=== PATIENT | female | born 1995 | race Caucasian/White ===

== ENCOUNTER → 2024-08-21 10:11 | Outpatient (REF) | payer OTHER, SELFPAY ==
[2024-08-23 13:49] LABS: Quantiferon Mitogen minus NIL 9.98 IU/mL; Quantiferon NIL 0.02 IU/mL; Quantiferon Plus TB1 minus NIL 0.02 IU/mL (<=0.34); Quantiferon Plus TB2 minus NIL 0.05 IU/mL (<=0.34); Quantiferon TB Gold Plus Negative (Negative)
== END ==
LOC: REG 10:11
PROVIDERS: ATTENDING PHYSICIAN Nurse Practitioner Family
DX: Z23 Encounter for immunization (principal)
CPT/HCPCS: 36415; 86480